=== PATIENT | female | born 1985 | race Caucasian/White ===

== ENCOUNTER 2024-07-18 15:48 | Inpatient (IN) ==
--- NOTE | 2024-07-18 17:21 | DR.GENAD ---
HPI Time Seen Time Seen by Provider: 07/18/24 17:20 PCP Primary Care Physician: WERO HPI Comment HPI Comment: 39-year-old obese female with hypertension came back for feeling weak and dehydrated. She was seen here a week ago for prolonged menstruation, anemia and was prescribed iron tablets. She was advised to follow-up with her [employer] doctor or PCP but she has not done that. She been trying to drink enough fluids but still she feels dehydrated feels like her sugar sputtering denied any vomiting or diarrhea Complaint/Symptoms Chief Complaint:: Patient states that she was recently here on the due to high blood pressure and passing blood clots. She also reports that her hemoglobin was low at this time. She states that she was sent home with iron pills. After taking them since discharge her fingers are now numb, and she feels like her sugar is bottoming out. She also reports that her feet are swollen. COVID-19 Coronavirus risk:travel/contact w/high risk person: No Has patient experienced Coronavirus symptoms: No Source History Provided: Patient Mode of Arrival Mode of Arrival: Ambulatory Timing Onset of Chief Complaint: 07/04/24 PMH PMH Past Medical History: Yes Past Medical History: Anxiety Past Surgical History: Yes Surgical History: Family History History of Family Medical Conditions: Yes Family Medical History: Diabetes Mellitus, Cancer and Hypertension Social History Does patient currently use any type of tobacco product: No Have you used tobacco products in the last 12 months: No Type of Tobacco Use: None Does any household member use tobacco: No Alcohol Use: None Do you use any recreational Drugs:: No Lives With: Family Lives Where: Home Travel Risk Coronavirus risk:travel/contact w/high risk person: No Has patient experienced Coronavirus symptoms: No Infectious screening In the last 2 months have you had wt loss of >10#?: NO Have you had fever, night sweats or hemotysis?: No Have you traveled outside the country in the last 6 months?: No Isolation: Standard ROS Review of Systems Constitutional: No Symptoms Reported, Malaise, Weakness and Fatigue; negative Diaphoresis or Fever Eyes: No Symptoms Reported and Blurred Vision; negative Tearing or Diplopia ENTM: No Symptoms Reported; negative Ear Discharge, Nose Discharge or Nose Congestion Respiratoy: No Symptoms Reported; negative Non-Productive Cough or Short of Breath Cardiovascular: No Symptoms Reported, Edema and Palpitations; negative Chest Pain or Syncope Gastrointestinal/Abdominal: No Symptoms Reported and Nausea; negative Constipation, Diarrhea or Vomiting Genitourinary: No Symptoms Reported; negative Dysuria, Frequency or Hematuria Neurological: No Symptoms Reported, Anxiety, Depressed and Emotional Problems Musculoskeletal: No Symptoms Reported; negative Back Pain, Joint Swelling, Muscle Pain or Muscle Stiffness Integumentary: No Symptoms Reported; negative Change in Hair/Nails, Dryness or Lesions Hematologic/Lymphatic: No Symptoms Reported and Blood Clots; negative Easy Bleeding or Easy Bruising Endocrine: No Symptoms Reported, Flushing, Increased Hunger and Increased Thirst Psychiatric: No Symptoms Reported All Other Systems: Reviewed and Negative PE Vital Signs Vitals: Vital Signs Temperature 99.5 F Pulse Rate 94 Respiratory Rate 18 Blood Pressure 158/70 O2 Sat by Pulse Oximetry 100 General Limitations: No Limitations General Appearance: Alert and In No Apparent Distress Head Head Exam: Normal Inspection, Atraumatic and Normocephalic Eyes Eye exam: Normal Appearance, PERRL and EOMI; negative Scleral Icterus or Conjunctival Injection ENT ENT Exam: Normal Exam and Mucous Membranes Dry External Ear Exam: Normal External Inspection; negative Mastoid Tenderness TM/Canal Exam: Bilateral: Normal Nose Exam: Normal Nose Exam Mouth Exam: Normal Inspection Throat Exam: Normal Inspection Neck Neck Exam: Normal Inspection and Full ROM; negative Tenderness or Meningismus Chest Chest Inspection: Normal Inspection and Symmetric Chest Wall Rise; negative Tenderness or Rash Respiratory Respiratory Exam: Normal Lung Sounds Bilat Respiratory Exam: Bilateral: Clear to Auscultation Cardiovascular Cardiovascular Exam: Regular Rate and Normal Rhythm Abdominal Exam Abdominal Exam: Normal Inspection, Normal Bowel Sounds and Soft; negative Distention, Tenderness or Guarding Extremities Extremities Exam: Normal Inspection Back Back Exam: Normal Inspection Neurologic Neurological Exam: Alert and Oriented X3 Psychiatric Psychiatric Exam: Normal Affect and Normal Mood Skin Skin Exam: Warm, Dry, Intact and Normal Color COURSE Treatment Treatment: Patient was given IV fluids and workup during this visit included CBC, CMP and a CAT scan of abdomen pelvis which showed no acute process going on just enlarged uterus. Noted to be severely anemic, will be admitted for Dr. Albarran for blood transfusions and further evaluation of anemia Reevaluation 1st: Consultation Called: 19:18 Call Returned: 19:20 Consultation Comments: Discussed with Dr. Albarran and agreed to admit this pa tient for blood transfusions and further evaluation of anemia. Education/Counseling Education/Counseling: Patient and Counseling ROR Labs Reviewed 07/18/24 17:37 07/18/24 17:37 Laboratory: WBC 6.3 X10^3/uL (3.6-10.0) 07/18/24 17:37 RBC 1.59 X10^6/uL (3.5-5.4) L 07/18/24 17:37 Hgb 4.1 g/dL (12.0-16.0) L* 07/18/24 17:37 Hct 12.4 % (36.0-47.0) L* 07/18/24 17:37 MCV 77.9 fL (80.0-100.0) L 07/18/24 17:37 MCH 25.5 pg (27.0-34.0) L 07/18/24 17:37 MCHC 32.7 g/dL (33.0-35.0) L 07/18/24 17:37 RDW 14.3 % (11.6-16.5) 07/18/24 17:37 Plt Count 487 X10^3/uL (150.0-450.0) H 07/18/24 17:37 MPV 6.9 fL (7.4-11.0) L 07/18/24 17:37 Neut % (Auto) 54.0 % (42.0-75.0) 07/18/24 17:37 Lymph % (Auto) 34.3 % (21.0-51.0) 07/18/24 17:37 [place] % (Auto) 11.1 % (0.0-13.0) 07/18/24 17:37 Eos % (Auto) 0.2 % (0.9-2.9) L 07/18/24 17:37 Baso % (Auto) 0.4 % (0.2-1.0) 07/18/24 17:37 Neut # (Auto) 3.4 x10^3/uL (2.2-4.8) 07/18/24 17:37 Lymph # (Auto) 2.2 X10^3/uL (1.3-2.9) 07/18/24 17:37 [place] # (Auto) 0.7 x10^3/uL (0.3-0.8) 07/18/24 17:37 Eos # (Auto) 0.0 x10^3/uL (0.0-0.2) 07/18/24 17:37 Baso # (Auto) 0.0 X10^3/uL (0.0-0.1) 07/18/24 17:37 Absolute Nucleated RBC 0.0 /100WBC 07/18/24 17:37 Sodium 134 mmol/L (136-145) L 07/18/24 17:37 Corrected Sodium TNP 07/18/24 17:37 Potassium 4.1 mmol/L (3.5-5.1) 07/18/24 17:37 Chloride 101 mmol/L (98-107) 07/18/24 17:37 Carbon Dioxide 30.1 mmol/L (21-32) 07/18/24 17:37 BUN 6 mg/dL (7-18) L 07/18/24 17:37 Creatinine 1.00 mg/dL (0.55-1.02) 07/18/24 17:37 Est GFR (MDRD) Af Amer > 60 (>60) 07/18/24 17:37 Est GFR (MDRD) Non-Af > 60 (>60) 07/18/24 17:37 Glucose 92 mg/dL (65-99) 07/18/24 17:37 Calcium 8.0 mg/dL (8.5-10.1) L 07/18/24 17:37 Corrected Calcium 9.0 mg/dL (8.5-10.1) 07/18/24 17:37 Total Bilirubin 0.20 mg/dL (0.2-1.0) 07/18/24 17:37 AST 9 Units/L (15-37) L 07/18/24 17:37 ALT 14 Units/L (12-78) 07/18/24 17:37 Alkaline Phosphatase 62 Units/L (46-116) 07/18/24 17:37 Troponin I High Sens 11.3 ng/L (4.0-60.0) 07/18/24 17:37 Total Protein 6.2 g/dL (6.4-8.2) L 07/18/24 17:37 Albumin 2.8 g/dL (3.4-5.0) L 07/18/24 17:37 Globulin 3.4 g/dL (2.5-4.5) 07/18/24 17:37 Albumin/Globulin Ratio 0.8 Ratio (1.1-2.1) L 07/18/24 17:37 Specimen Type Clean catch urine 07/18/24 17:50 Urine Color Straw (YELLOW) 07/18/24 17:50 Urine Appearance Clear (CLEAR) 07/18/24 17:50 Urine pH 6.5 (5.0 - 8.0) 07/18/24 17:50 Ur Specific [place] 1.010 (1.000-1.030) 07/18/24 17:50 Urine Protein Negative (NEGATIVE) 07/18/24 17:50 Urine Glucose (UA) Negative (NEGATIVE) 07/18/24 17:50 Urine Ketones Negative (NEGATIVE) 07/18/24 17:50 Urine Blood Negative (NEGATIVE) 07/18/24 17:50 Urine Nitrite Negative (NEGATIVE) 07/18/24 17:50 Urine Bilirubin Negative (NEGATIVE) 07/18/24 17:50 Urine Urobilinogen Normal (NORMAL) 07/18/24 17:50 Ur Leukocyte Esterase 1+ (NEGATIVE) 07/18/24 17:50 Urine RBC 3-5 /HPF (0-3) A 07/18/24 17:50 Urine WBC 20-30 /HPF (0-5) A 07/18/24 17:50 Ur Squamous Epith Cells Moderate /HPF (NEGATIVE) 07/18/24 17:50 Ur Transition Epith Cell Few /HPF (NEGATIVE) 07/18/24 17:50 Urine Bacteria Trace /HPF (NEGATIVE) 07/18/24 17:50 Ur Culture Indicated? No/not indicated 07/18/24 17:50 Stool Occult Blood Negative (NEGATIVE) 07/18/24 18:16 Urine Opiates Screen Negative (NEG=<300) 07/18/24 17:50 Urine Methadone Screen Negative (NEG=<300) 07/18/24 17:50 Ur Barbiturates Screen Negative (NEG=<200) 07/18/24 17:50 Ur Phencyclidine Scrn Negative (NEG=<25) 07/18/24 17:50 Ur Amphetamines Screen Negative (NEG=<1000) 07/18/24 17:50 U Benzodiazepines Scrn Negative (NEG=<200) 07/18/24 17:50 Urine Cocaine Screen Negative (NEG=<300) 07/18/24 17:50 U Marijuana (THC) Screen Negative (NEG=<50) 07/18/24 17:50 Blood Type O POSITIVE 07/18/24 18:38 Blood Type O POSITIVE 07/18/24 18:38 Antibody Screen Negative 07/18/24 18:38 Crossmatch See Detail 07/18/24 18:38 Opioid Opioid Risk Tool Age (Aidan box if 16-45): Yes History of Preadolescent Sexual Abuse: No Total: 1 Total Score Risk Category: Low Risk Copyright: Raj JARAMILLO predicting aberrant behaviors Discharge Plan Diagnosis Discharge Problem: Anemia Qualifiers: Anemia type: unspecified type Qualified Code(s): D64.9 - Anemia, unspecified Discharge Plan Patient Disposition: ADMITTED INPATIENT Condition: Stable Prescriptions: No Action ferrous sulfate 325 mg (65 mg iron) tablet 325 mg PO QDAY Qty: 20 0RF Health Concerns: Post Hospitalization: new medications and changes needed to prevent readmission or further decline. Pt educated and given instructions on all concerns. Plan of Treatment: Continue with present treatment and follow up plan. Pt is to keep follow up appointment as instructed and take medications as ordered. Orders to Discharge Patient Discharge Orders: Transfer (Routine); Ordered 07/18/24 Ordered By: Davis Gaitan Follow ups/Referrals Follow ups/Referrals: NFD,None [Primary Care Provider] - 3 days
[2024-07-18] MEDS: NS 1,000 ML IV 1,000 ML IV ONE (17:39)
[2024-07-18 17:47] LABS: EOSINOPHILS % (AUTO) 0.2 % (0.9-2.9); MONOCYTES # (AUTO) 0.7 x10^3/uL (0.3-0.8); NEUTROPHILS # (AUTO) 3.4 x10^3/uL (2.2-4.8); RED BLOOD COUNT 1.59 X10^6/uL (3.5-5.4)
[2024-07-18 17:58] LABS: BASOPHILS % (AUTO) 0.4 % (0.2-1.0); LYMPHOCYTES # (AUTO) 2.2 X10^3/uL (1.3-2.9); LYMPHOCYTES % (AUTO) 34.3 % (21.0-51.0); MEAN CORPUSCULAR HEMOGLOBIN 25.5 pg (27.0-34.0); MEAN CORPUSCULAR HGB CONC 32.7 g/dL (33.0-35.0); MEAN CORPUSCULAR VOLUME 77.9 fL (80.0-100.0); MEAN PLATELET VOLUME 6.9 fL (7.4-11.0); MONOCYTES % (AUTO) 11.1 % (0.0-13.0); PLATELET COUNT 487 X10^3/uL (150.0-450.0); RED CELL DISTRIBUTION WIDTH 14.3 % (11.6-16.5); WHITE BLOOD COUNT 6.3 X10^3/uL (3.6-10.0)
--- NOTE | 2024-07-18 17:58 | EKG ---
Test Reason : weakness Blood Pressure : */* mmHG Vent. Rate : 97 BPM Atrial Rate : 97 BPM P-R Int : 126 ms QRS Dur : 74 ms QT Int : 356 ms P-R-T Axes : 72 61 68 degrees QTc Int : 452 ms Normal sinus rhythm Normal ECG No previous ECGs available Confirmed by Tesfaye Gaspar MD ([id number]) on 07/19/2024 7:41:42 AM Referred By: Confirmed By: Tesfaye Gaspar MD
[2024-07-18 18:00] LABS: ALANINE AMINOTRANSFERASE 14 Units/L (12-78); ALBUMIN 2.8 g/dL (3.4-5.0); ALKALINE PHOSPHATASE 62 Units/L (46-116); ASPARTATE AMINO TRANSFERASE 9 Units/L (15-37); BLOOD UREA NITROGEN 6 mg/dL (7-18); CARBON DIOXIDE 30.1 mmol/L (21-32); CHLORIDE 101 mmol/L (98-107); GLUCOSE 92 mg/dL (65-99); POTASSIUM 4.1 mmol/L (3.5-5.1); SODIUM 134 mmol/L (136-145); TOTAL PROTEIN 6.2 g/dL (6.4-8.2); eGFR NON BLACK RACES > 60 (>60)
[2024-07-18 18:01] LABS: HEMATOCRIT 12.4 % (36.0-47.0); HEMOGLOBIN 4.1 g/dL (12.0-16.0)
[2024-07-18 18:03] LABS: BILIRUBIN,URINE NEGATIVE (NEGATIVE); BLOOD/HEMOGLOBIN,URINE NEGATIVE (NEGATIVE); GLUCOSE, URINE NEGATIVE (NEGATIVE); KETONES,URINE NEGATIVE (NEGATIVE); LEUKOCYTE ESTERASE ,URINE 1+ (NEGATIVE); NITRITES,URINE NEGATIVE (NEGATIVE); PH,URINE 6.5 (5.0 - 8.0); PROTEIN,URINE NEGATIVE (NEGATIVE); UROBILINOGEN,URINE NORMAL (NORMAL)
[2024-07-18 18:10] LABS: APPEARANCE,URINE CLEAR (CLEAR); COLOR,URINE STRAW (YELLOW)
[2024-07-18 18:18] LABS: BACTERIA,URINE TRACE /HPF (NEGATIVE); SQUAMOUS EPITHELIAL CELL,UR MODERATE /HPF (NEGATIVE); TRANSITIONAL EPI CELLS,URINE FEW /HPF (NEGATIVE)
--- NOTE | 2024-07-18 19:02 | CT ---
EXAM:CT ABDOMEN AND PELVIS WITHOUT CONTRASTHISTORY:DYSURIA, UTI, ;COMPARISON:NoneTECHNIQUE:Axial images were obtained of the abdomen and pelvis without IV contrast. Sagittal and coronal reformatted images were provided. All images were reviewed in a variety of windows and levels.RADIATION REDUCTION TECHNIQUE: Automated exposure control, adjustment of the mA or kV according to patient size, or iterative reconstruction techniques were used.FINDINGS:Please note that lack of IV contrast does limit evaluation of the soft tissues and vascular detail.The visualized lower lung zones are clear. The heart size is within normal limits. There is no evidence of a pericardial effusion.The liver, spleen, pancreas, adrenal glands, and kidneys are grossly unremarkable. The gallbladder is grossly unremarkable.There is no evidence of stones or signs of obstructive uropathy.The stomach, small bowel, and colon are grossly unremarkable. There are no inflammatory changes in the right lower quadrant to suggest secondary signs of acute appendicitis. Normal appendix right lower quadrant.There is no evidence of retroperitoneal or mesenteric lymphadenopathy. Uterus is present.The visualized bones are intact. There are no concerning lytic or blastic lesions identified.IMPRESSION:No acute abdominal or pelvic pathologyTHIS IS AN ELECTRONICALLY VERIFIED FINAL [id number] 6:59 PM - Electronically signed by Angel Orellana MD
--- NOTE | 2024-07-18 19:34 | DR.GENAD ---
HPI Time Seen Time Seen by Provider: 07/18/24 17:20 PCP Primary Care Physician: WERO Complaint/Symptoms Chief Complaint:: Patient states that she was recently here on the due to high blood pressure and passing blood clots. She also reports that her hemoglobin was low at this time. She states that she was sent home with iron pills. After taking them since discharge her fingers are now numb, and she feels like her sugar is bottoming out. She also reports that her feet are swollen. COVID-19 Coronavirus risk:travel/contact w/high risk person: No Has patient experienced Coronavirus symptoms: No Source History Provided: Patient Mode of Arrival Mode of Arrival: Ambulatory Timing Onset of Chief Complaint: 07/04/24 PMH PMH Past Medical History: Yes Past Medical History: Anxiety Past Surgical History: Yes Surgical History: Family History History of Family Medical Conditions: Yes Family Medical History: Diabetes Mellitus, Cancer and Hypertension Social History Does patient currently use any type of tobacco product: No Have you used tobacco products in the last 12 months: No Type of Tobacco Use: None Does any household member use tobacco: No Alcohol Use: None Do you use any recreational Drugs:: No Lives With: Family Lives Where: Home Travel Risk Coronavirus risk:travel/contact w/high risk person: No Has patient experienced Coronavirus symptoms: No Infectious screening In the last 2 months have you had wt loss of >10#?: NO Have you had fever, night sweats or hemotysis?: No Have you traveled outside the country in the last 6 months?: No Isolation: Standard PE Vital Signs Vitals: Vital Signs Temperature 99.5 F Pulse Rate 94 Respiratory Rate 18 Blood Pressure 158/70 O2 Sat by Pulse Oximetry 100 ROR Labs Reviewed Laboratory Results Reviewed?: Yes 07/18/24 17:37 07/18/24 17:37 Laboratory: WBC 6.3 X10^3/uL (3.6-10.0) 07/18/24 17:37 RBC 1.59 X10^6/uL (3.5-5.4) L 07/18/24 17:37 Hgb 4.1 g/dL (12.0-16.0) L* 07/18/24 17:37 Hct 12.4 % (36.0-47.0) L* 07/18/24 17:37 MCV 77.9 fL (80.0-100.0) L 07/18/24 17:37 MCH 25.5 pg (27.0-34.0) L 07/18/24 17:37 MCHC 32.7 g/dL (33.0-35.0) L 07/18/24 17:37 RDW 14.3 % (11.6-16.5) 07/18/24 17:37 Plt Count 487 X10^3/uL (150.0-450.0) H 07/18/24 17:37 MPV 6.9 fL (7.4-11.0) L 07/18/24 17:37 Neut % (Auto) 54.0 % (42.0-75.0) 07/18/24 17:37 Lymph % (Auto) 34.3 % (21.0-51.0) 07/18/24 17:37 [place] % (Auto) 11.1 % (0.0-13.0) 07/18/24 17:37 Eos % (Auto) 0.2 % (0.9-2.9) L 07/18/24 17:37 Baso % (Auto) 0.4 % (0.2-1.0) 07/18/24 17:37 Neut # (Auto) 3.4 x10^3/uL (2.2-4.8) 07/18/24 17:37 Lymph # (Auto) 2.2 X10^3/uL (1.3-2.9) 07/18/24 17:37 [place] # (Auto) 0.7 x10^3/uL (0.3-0.8) 07/18/24 17:37 Eos # (Auto) 0.0 x10^3/uL (0.0-0.2) 07/18/24 17:37 Baso # (Auto) 0.0 X10^3/uL (0.0-0.1) 07/18/24 17:37 Absolute Nucleated RBC 0.0 /100WBC 07/18/24 17:37 Sodium 134 mmol/L (136-145) L 07/18/24 17:37 Corrected Sodium TNP 07/18/24 17:37 Potassium 4.1 mmol/L (3.5-5.1) 07/18/24 17:37 Chloride 101 mmol/L (98-107) 07/18/24 17:37 Carbon Dioxide 30.1 mmol/L (21-32) 07/18/24 17:37 BUN 6 mg/dL (7-18) L 07/18/24 17:37 Creatinine 1.00 mg/dL (0.55-1.02) 07/18/24 17:37 Est GFR (MDRD) Af Amer > 60 (>60) 07/18/24 17:37 Est GFR (MDRD) Non-Af > 60 (>60) 07/18/24 17:37 Glucose 92 mg/dL (65-99) 07/18/24 17:37 Calcium 8.0 mg/dL (8.5-10.1) L 07/18/24 17:37 Corrected Calcium 9.0 mg/dL (8.5-10.1) 07/18/24 17:37 Total Bilirubin 0.20 mg/dL (0.2-1.0) 07/18/24 17:37 AST 9 Units/L (15-37) L 07/18/24 17:37 ALT 14 Units/L (12-78) 07/18/24 17:37 Alkaline Phosphatase 62 Units/L (46-116) 07/18/24 17:37 Troponin I High Sens 11.3 ng/L (4.0-60.0) 07/18/24 17:37 Total Protein 6.2 g/dL (6.4-8.2) L 07/18/24 17:37 Albumin 2.8 g/dL (3.4-5.0) L 07/18/24 17:37 Globulin 3.4 g/dL (2.5-4.5) 07/18/24 17:37 Albumin/Globulin Ratio 0.8 Ratio (1.1-2.1) L 07/18/24 17:37 Specimen Type Clean catch urine 07/18/24 17:50 Urine Color Straw (YELLOW) 07/18/24 17:50 Urine Appearance Clear (CLEAR) 07/18/24 17:50 Urine pH 6.5 (5.0 - 8.0) 07/18/24 17:50 Ur Specific [place] 1.010 (1.000-1.030) 07/18/24 17:50 Urine Protein Negative (NEGATIVE) 07/18/24 17:50 Urine Glucose (UA) Negative (NEGATIVE) 07/18/24 17:50 Urine Ketones Negative (NEGATIVE) 07/18/24 17:50 Urine Blood Negative (NEGATIVE) 07/18/24 17:50 Urine Nitrite Negative (NEGATIVE) 07/18/24 17:50 Urine Bilirubin Negative (NEGATIVE) 07/18/24 17:50 Urine Urobilinogen Normal (NORMAL) 07/18/24 17:50 Ur Leukocyte Esterase 1+ (NEGATIVE) 07/18/24 17:50 Urine RBC 3-5 /HPF (0-3) A 07/18/24 17:50 Urine WBC 20-30 /HPF (0-5) A 07/18/24 17:50 Ur Squamous Epith Cells Moderate /HPF (NEGATIVE) 07/18/24 17:50 Ur Transition Epith Cell Few /HPF (NEGATIVE) 07/18/24 17:50 Urine Bacteria Trace /HPF (NEGATIVE) 07/18/24 17:50 Ur Culture Indicated? No/not indicated 07/18/24 17:50 Stool Occult Blood Negative (NEGATIVE) 07/18/24 18:16 Urine Opiates Screen Negative (NEG=<300) 07/18/24 17:50 Urine Methadone Screen Negative (NEG=<300) 07/18/24 17:50 Ur Barbiturates Screen Negative (NEG=<200) 07/18/24 17:50 Ur Phencyclidine Scrn Negative (NEG=<25) 07/18/24 17:50 Ur Amphetamines Screen Negative (NEG=<1000) 07/18/24 17:50 U Benzodiazepines Scrn Negative (NEG=<200) 07/18/24 17:50 Urine Cocaine Screen Negative (NEG=<300) 07/18/24 17:50 U Marijuana (THC) Screen Negative (NEG=<50) 07/18/24 17:50 Blood Type O POSITIVE 07/18/24 18:38 Blood Type O POSITIVE 07/18/24 18:38 Antibody Screen Negative 07/18/24 18:38 Crossmatch See Detail 07/18/24 18:38 EKG Rate: 97 [place]: Normal Rhythm: NSR Opioid Opioid Risk Tool Age (Aidan box if 16-45): Yes History of Preadolescent Sexual Abuse: No Total: 1 Total Score Risk Category: Low Risk Copyright: Raj JARAMILLO predicting aberrant behaviors Discharge Plan Diagnosis Discharge Problem: Anemia Qualifiers: Anemia type: unspecified type Qualified Code(s): D64.9 - Anemia, unspecified Discharge Plan Patient Disposition: ADMITTED INPATIENT Condition: Stable Prescriptions: No Action ferrous sulfate 325 mg (65 mg iron) tablet 325 mg PO QDAY Qty: 20 0RF Health Concerns: Post Hospitalization: new medications and changes needed to prevent readmission or further decline. Pt educated and given instructions on all concerns. Plan of Treatment: Continue with present treatment and follow up plan. Pt is to keep follow up appointment as instructed and take medications as ordered. Orders to Discharge Patient Discharge Orders: Transfer (Routine); Ordered 07/18/24 Ordered By: Davis Gaitan Follow ups/Referrals Follow ups/Referrals: NFD,None [Primary Care Provider] - 3 days ADDITIONAL NOTES Additional Notes Additional Notes: Patient will be admitted for OBS, for Dr. Albarran
[2024-07-18] MEDS ORDERED: CONSULT PHARMACY - POTASSIUM & MAGNESIUM XX SCH (20:00)
[2024-07-18 20:54] VITALS: BMI 32.9
[2024-07-18] MEDS: TYLENOL 325 MG TAB PO PRN (21:22)
[2024-07-19 07:54] LABS: MEAN CORPUSCULAR VOLUME 81.3 fL (80.0-100.0); MEAN PLATELET VOLUME 6.9 fL (7.4-11.0); NEUTROPHILS # (AUTO) 2.9 x10^3/uL (2.2-4.8)
[2024-07-19 07:57] LABS: BASOPHILS % (AUTO) 0.4 % (0.2-1.0); EOSINOPHILS % (AUTO) 0.8 % (0.9-2.9); LYMPHOCYTES # (AUTO) 1.6 X10^3/uL (1.3-2.9); LYMPHOCYTES % (AUTO) 30.9 % (21.0-51.0); MEAN CORPUSCULAR HEMOGLOBIN 26.7 pg (27.0-34.0); MEAN CORPUSCULAR HGB CONC 32.9 g/dL (33.0-35.0); MONOCYTES # (AUTO) 0.7 x10^3/uL (0.3-0.8); MONOCYTES % (AUTO) 12.6 % (0.0-13.0); NEUTROPHILS % (AUTO) 55.3 % (42.0-75.0); PLATELET COUNT 443 X10^3/uL (150.0-450.0); RED BLOOD COUNT 2.31 X10^6/uL (3.5-5.4); RED CELL DISTRIBUTION WIDTH 15.3 % (11.6-16.5); WHITE BLOOD COUNT 5.3 X10^3/uL (3.6-10.0)
[2024-07-19 07:59] LABS: HEMATOCRIT 18.8 % (36.0-47.0); HEMOGLOBIN 6.2 g/dL (12.0-16.0)
[2024-07-19 08:07] LABS: ALANINE AMINOTRANSFERASE 14 Units/L (12-78); ALBUMIN 2.6 g/dL (3.4-5.0); ALKALINE PHOSPHATASE 57 Units/L (46-116); ASPARTATE AMINO TRANSFERASE 9 Units/L (15-37); BLOOD UREA NITROGEN 8 mg/dL (7-18); CALCIUM 7.9 mg/dL (8.5-10.1); CARBON DIOXIDE 27.4 mmol/L (21-32); CHLORIDE 104 mmol/L (98-107); CREATININE 0.89 mg/dL (0.55-1.02); GLUCOSE 90 mg/dL (65-99); POTASSIUM 4.1 mmol/L (3.5-5.1); SODIUM 137 mmol/L (136-145); TOTAL PROTEIN 5.8 g/dL (6.4-8.2); eGFR NON BLACK RACES > 60 (>60)
[2024-07-19] MEDS: PROVERA PO SCH (09:10)
--- NOTE | 2024-07-19 09:54 | US ---
EXAM: PELVIC (NON OB) HISTORY: VAGINAL BLEEDING, SEVERE ANEMIA; last menstrual cycle 07/11/2024. A3. COMPARISON: CT abdomen and pelvis 07/18/2024 TECHNIQUE: 35 images made by the message and delivery service pricer. Morejon scale and color flow images of the pelvis were obtained. FINDINGS: Transabdominal: Bladder is not well distended. It has a thin wall, but this makes for a poor acousti c window. Uterus is anteverted in position. The distal body and fundus may be slightly retroflexed. It measur es about 10 cm long and about 4 cm in diameter. There is suboptimal visualization of the lower uterine segment. But in general, the uterus has a smo oth contour. The myometrium has uniform coarse echotexture without mass or nodule to suggest fibroid . Endometrium is isoechoic measuring 6 mm. Right and left ovary have normal volume and echogenicity. Blood flow is demonstrated by color imagin g and spectral wave form analysis. There is a cystic structure in the left ovary measuring 2.9 cm. This may be a dominant follicle. There is no adnexal mass or free fluid. IMPRESSION: 1. No significant abnormality THIS IS AN ELECTRONICALLY VERIFIED FINAL REPORT 07/19/2024 9:51 AM - Electronically signed by Eric Davies MD
--- NOTE | 2024-07-19 14:14 | DR.H&P ---
H&P History & Physical for Day of: H&P Date: 07/19/24 Chief Complaint Chief Complaint: fatigue History of Present Illness History of Present Illness: Patient presented to the ER with complaints of worsening dizziness and continued uterine bleeding with clots. 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 Can back last night with no im provement. Hemoglobin found to be less than 5. She was transfused 2 units overnight with appropriate improvement in hemoglobin. Currently getting third unit as her hemoglobin was still less than 7. She continues to report fatigue that is improving, uterine bleeding, and sleepiness. Gynecology has evaluated the patient and recommended progesterone. She has had a TVUS showing no fibroids with a possible cyst. CT A/P with no concerning findings last night. ROS: 2 point ROS negative except as noted in HPI Vitals, labs, imaging reviewed PE: Well-developed, well-nourished, obese female in NAD. Appears tired. Hearing intact conversation. Head NCAT. Neck full range of motion with midline trachea. Heart regular rate and rhythm. Lungs are clear bilaterally with good speech. Pastimes present and belly is soft and nontender. Mood affect are appropriate. Past Medical History Past Medical History: Anxiety Past Surgical History Surgical History: Family History Family Medical History: Diabetes Mellitus, Cancer, [place], Heart Failure and Hypertension Social History Does patient currently use any type of tobacco product: No Have you used tobacco products in the last 12 months: No Type of Tobacco Use: None Does any household member use tobacco: No Alcohol Use: None Drug Use: None Allergies Allergies Allergy/AdvReac Type Severity Reaction Status Date / Time No Known Allergies Allergy Verified 07/11/24 16:46 Labs 07/19/24 07:45 07/19/24 07:45 Labs: Laboratory WBC 5.3 X10^3/uL (3.6-10.0) 07/19/24 07:45 RBC 2.31 X10^6/uL (3.5-5.4) L 07/19/24 07:45 Hgb 6.2 g/dL (12.0-16.0) L* D 07/19/24 07:45 Hct 18.8 % (36.0-47.0) L* 07/19/24 07:45 MCV 81.3 fL (80.0-100.0) 07/19/24 07:45 MCH 26.7 pg (27.0-34.0) L 07/19/24 07:45 MCHC 32.9 g/dL (33.0-35.0) L 07/19/24 07:45 RDW 15.3 % (11.6-16.5) 07/19/24 07:45 Plt Count 443 X10^3/uL (150.0-450.0) 07/19/24 07:45 MPV 6.9 fL (7.4-11.0) L 07/19/24 07:45 Neut % (Auto) 55.3 % (42.0-75.0) 07/19/24 07:45 Lymph % (Auto) 30.9 % (21.0-51.0) 07/19/24 07:45 [place] % (Auto) 12.6 % (0.0-13.0) 07/19/24 07:45 Eos % (Auto) 0.8 % (0.9-2.9) L 07/19/24 07:45 Baso % (Auto) 0.4 % (0.2-1.0) 07/19/24 07:45 Neut # (Auto) 2.9 x10^3/uL (2.2-4.8) 07/19/24 07:45 Lymph # (Auto) 1.6 X10^3/uL (1.3-2.9) 07/19/24 07:45 [place] # (Auto) 0.7 x10^3/uL (0.3-0.8) 07/19/24 07:45 Eos # (Auto) 0.0 x10^3/uL (0.0-0.2) 07/19/24 07:45 Baso # (Auto) 0.0 X10^3/uL (0.0-0.1) 07/19/24 07:45 Absolute Nucleated RBC 0.1 /100WBC 07/19/24 07:45 Sodium 137 mmol/L (136-145) 07/19/24 07:45 Corrected Sodium TNP 07/19/24 07:45 Potassium 4.1 mmol/L (3.5-5.1) 07/19/24 07:45 Chloride 104 mmol/L (98-107) 07/19/24 07:45 Carbon Dioxide 27.4 mmol/L (21-32) 07/19/24 07:45 BUN 8 mg/dL (7-18) 07/19/24 07:45 Creatinine 0.89 mg/dL (0.55-1.02) 07/19/24 07:45 Est GFR (MDRD) Af Amer > 60 (>60) 07/19/24 07:45 Est GFR (MDRD) Non-Af > 60 (>60) 07/19/24 07:45 Glucose 90 mg/dL (65-99) 07/19/24 07:45 Calcium 7.9 mg/dL (8.5-10.1) L 07/19/24 07:45 Corrected Calcium 9.0 mg/dL (8.5-10.1) 07/19/24 07:45 Total Bilirubin 0.50 mg/dL (0.2-1.0) 07/19/24 07:45 AST 9 Units/L (15-37) L 07/19/24 07:45 ALT 14 Units/L (12-78) 07/19/24 07:45 Alkaline Phosphatase 57 Units/L (46-116) 07/19/24 07:45 Troponin I High Sens 11.3 ng/L (4.0-60.0) 07/18/24 17:37 Total Protein 5.8 g/dL (6.4-8.2) L 07/19/24 07:45 Albumin 2.6 g/dL (3.4-5.0) L 07/19/24 07:45 Globulin 3.2 g/dL (2.5-4.5) 07/19/24 07:45 Albumin/Globulin Ratio 0.8 Ratio (1.1-2.1) L 07/19/24 07:45 Specimen Type Clean catch urine 07/18/24 17:50 Urine Color Straw (YELLOW) 07/18/24 17:50 Urine Appearance Clear (CLEAR) 07/18/24 17:50 Urine pH 6.5 (5.0 - 8.0) 07/18/24 17:50 Ur Specific [place] 1.010 (1.000-1.030) 07/18/24 17:50 Urine Protein Negative (NEGATIVE) 07/18/24 17:50 Urine Glucose (UA) Negative (NEGATIVE) 07/18/24 17:50 Urine Ketones Negative (NEGATIVE) 07/18/24 17:50 Urine Blood Negative (NEGATIVE) 07/18/24 17:50 Urine Nitrite Negative (NEGATIVE) 07/18/24 17:50 Urine Bilirubin Negative (NEGATIVE) 07/18/24 17:50 Urine Urobilinogen Normal (NORMAL) 07/18/24 17:50 Ur Leukocyte Esterase 1+ (NEGATIVE) 07/18/24 17:50 Urine RBC 3-5 /HPF (0-3) A 07/18/24 17:50 Urine WBC 20-30 /HPF (0-5) A 07/18/24 17:50 Ur Squamous Epith Cells Moderate /HPF (NEGATIVE) 07/18/24 17:50 Ur Transition Epith Cell Few /HPF (NEGATIVE) 07/18/24 17:50 Urine Bacteria Trace /HPF (NEGATIVE) 07/18/24 17:50 Ur Culture Indicated? No/not indicated 07/18/24 17:50 Stool Occult Blood Negative (NEGATIVE) 07/18/24 18:16 Urine Opiates Screen Negative (NEG=<300) 07/18/24 17:50 Urine Methadone Screen Negative (NEG=<300) 07/18/24 17:50 Ur Barbiturates Screen Negative (NEG=<200) 07/18/24 17:50 Ur Phencyclidine Scrn Negative (NEG=<25) 07/18/24 17:50 Ur Amphetamines Screen Negative (NEG=<1000) 07/18/24 17:50 U Benzodiazepines Scrn Negative (NEG=<200) 07/18/24 17:50 Urine Cocaine Screen Negative (NEG=<300) 07/18/24 17:50 U Marijuana (THC) Screen Negative (NEG=<50) 07/18/24 17:50 Blood Type O POSITIVE 07/18/24 18:38 Antibody Screen Negative 07/18/24 17:38 Crossmatch See Detail 07/18/24 17:38 Physical Exam Vital Signs: Vital Signs Temperature 98.6 F Temperature 97.9 F Pulse Rate [Brachial] 92 Pulse Rate [Brachial] 84 Respiratory Rate 20 Respiratory Rate 20 Blood Pressure [Left Arm] 164/79 Blood Pressure [Left Arm] 142/69 O2 Sat by Pulse Oximetry 100 O2 Sat by Pulse Oximetry 99 Assessment/Plan (1) Iron deficiency anemia due to chronic blood loss: Narrative Support Text: Complete 3rd/4th PRBC units. Recheck labs in AM. Status: Acute (2) Menorrhagia: Qualifiers: Menorrhagia type: with onset of menstrual periods Qualified Code(s): N92.2 - Excessive menstruation at puberty Narrative Support Text: appreciate input from TRACK LINER OPERATOR. Follow recs. Status: Acute
[2024-07-19] MEDS: FERROUS GLUCONATE PO SCH (16:02)
[2024-07-19 18:42] LABS: HEMATOCRIT 26.3 % (36.0-47.0); HEMOGLOBIN 8.9 g/dL (12.0-16.0)
[2024-07-19] MEDS: NS 500 ML IV 500 ML IV ONE (23:19)
[2024-07-19] MEDS: NS 250 ML IV 250 ML IV ONE ×4 (23:19→23:20)
[2024-07-20 04:46] LABS: BASOPHILS % (AUTO) 0.6 % (0.2-1.0); EOSINOPHILS # (AUTO) 0.1 x10^3/uL (0.0-0.2); EOSINOPHILS % (AUTO) 1.3 % (0.9-2.9); HEMATOCRIT 24.4 % (36.0-47.0); HEMOGLOBIN 8.2 g/dL (12.0-16.0); LYMPHOCYTES # (AUTO) 2.2 X10^3/uL (1.3-2.9); LYMPHOCYTES % (AUTO) 36.9 % (21.0-51.0); MEAN CORPUSCULAR HEMOGLOBIN 27.2 pg (27.0-34.0); MEAN CORPUSCULAR HGB CONC 33.7 g/dL (33.0-35.0); MEAN CORPUSCULAR VOLUME 80.7 fL (80.0-100.0); MEAN PLATELET VOLUME 7.3 fL (7.4-11.0); MONOCYTES # (AUTO) 0.6 x10^3/uL (0.3-0.8); MONOCYTES % (AUTO) 10.3 % (0.0-13.0); NEUTROPHILS # (AUTO) 3.1 x10^3/uL (2.2-4.8); NEUTROPHILS % (AUTO) 50.9 % (42.0-75.0); PLATELET COUNT 442 X10^3/uL (150.0-450.0); RED BLOOD COUNT 3.03 X10^6/uL (3.5-5.4); RED CELL DISTRIBUTION WIDTH 15.7 % (11.6-16.5)
[2024-07-20 05:02] LABS: ALANINE AMINOTRANSFERASE 12 Units/L (12-78); ALBUMIN 2.7 g/dL (3.4-5.0); ALKALINE PHOSPHATASE 61 Units/L (46-116); ASPARTATE AMINO TRANSFERASE 7 Units/L (15-37); BLOOD UREA NITROGEN 13 mg/dL (7-18); CALCIUM 8.2 mg/dL (8.5-10.1); CARBON DIOXIDE 26.1 mmol/L (21-32); CHLORIDE 105 mmol/L (98-107); COR CA(FOR HYPOALB) 9.2 mg/dL (8.5-10.1); CREATININE 0.89 mg/dL (0.55-1.02); GLUCOSE 94 mg/dL (65-99); POTASSIUM 3.7 mmol/L (3.5-5.1); SODIUM 138 mmol/L (136-145); eGFR NON BLACK RACES > 60 (>60)
[2024-07-20] MEDS ORDERED: CONSULT PHARMACY - POTASSIUM & MAGNESIUM XX SCH (07:00)
[2024-07-20] MEDS: K-DUR TAB 20 MEQ PO SCH (08:03)
--- NOTE | 2024-07-20 08:06 | PCM.DCPLAN ---
DISCHARGE SUMMARY Admission Date Date of Admission: 07/18/24 Discharge Date Discharge Date: 07/20/24 Admission Diagnoses (1) Iron deficiency anemia due to chronic blood loss: Status: Acute (2) Menorrhagia: Status: Acute Discharge Medications Discharge Medications: Prescriptions: Hospital Course Vital Signs: Vital Signs Temperature 97.6 F Pulse Rate [Brachial] 64 Respiratory Rate 21 Blood Pressure [Left Arm] 169/76 Blood Pressure [Left Arm] 158/76 O2 Sat by Pulse Oximetry 100 Latest Lab Results: Laboratory Last Values WBC 6.0 X10^3/uL (3.6-10.0) 07/20/24 04:06 RBC 3.03 X10^6/uL (3.5-5.4) L 07/20/24 04:06 Hgb 8.2 g/dL (12.0-16.0) L 07/20/24 04:06 Hct 24.4 % (36.0-47.0) L 07/20/24 04:06 MCV 80.7 fL (80.0-100.0) 07/20/24 04:06 MCH 27.2 pg (27.0-34.0) 07/20/24 04:06 MCHC 33.7 g/dL (33.0-35.0) 07/20/24 04:06 RDW 15.7 % (11.6-16.5) 07/20/24 04:06 Plt Count 442 X10^3/uL (150.0-450.0) 07/20/24 04:06 MPV 7.3 fL (7.4-11.0) L 07/20/24 04:06 Neut % (Auto) 50.9 % (42.0-75.0) 07/20/24 04:06 Lymph % (Auto) 36.9 % (21.0-51.0) 07/20/24 04:06 [place] % (Auto) 10.3 % (0.0-13.0) 07/20/24 04:06 Eos % (Auto) 1.3 % (0.9-2.9) 07/20/24 04:06 Baso % (Auto) 0.6 % (0.2-1.0) 07/20/24 04:06 Neut # (Auto) 3.1 x10^3/uL (2.2-4.8) 07/20/24 04:06 Lymph # (Auto) 2.2 X10^3/uL (1.3-2.9) 07/20/24 04:06 [place] # (Auto) 0.6 x10^3/uL (0.3-0.8) 07/20/24 04:06 Eos # (Auto) 0.1 x10^3/uL (0.0-0.2) 07/20/24 04:06 Baso # (Auto) 0.0 X10^3/uL (0.0-0.1) 07/20/24 04:06 Absolute Nucleated RBC 0.3 /100WBC 07/20/24 04:06 Sodium 138 mmol/L (136-145) 07/20/24 04:06 Corrected Sodium TNP 07/20/24 04:06 Potassium 3.7 mmol/L (3.5-5.1) 07/20/24 04:06 Chloride 105 mmol/L (98-107) 07/20/24 04:06 Carbon Dioxide 26.1 mmol/L (21-32) 07/20/24 04:06 BUN 13 mg/dL (7-18) 07/20/24 04:06 Creatinine 0.89 mg/dL (0.55-1.02) 07/20/24 04:06 Est GFR (MDRD) Af Amer > 60 (>60) 07/20/24 04:06 Est GFR (MDRD) Non-Af > 60 (>60) 07/20/24 04:06 Glucose 94 mg/dL (65-99) 07/20/24 04:06 Calcium 8.2 mg/dL (8.5-10.1) L 07/20/24 04:06 Corrected Calcium 9.2 mg/dL (8.5-10.1) 07/20/24 04:06 Magnesium 2.0 mg/dL (2.0-2.9) 07/20/24 04:06 Total Bilirubin 0.40 mg/dL (0.2-1.0) 07/20/24 04:06 AST 7 Units/L (15-37) L 07/20/24 04:06 ALT 12 Units/L (12-78) 07/20/24 04:06 Alkaline Phosphatase 61 Units/L (46-116) 07/20/24 04:06 Troponin I High Sens 11.3 ng/L (4.0-60.0) 07/18/24 17:37 Total Protein 6.0 g/dL (6.4-8.2) L 07/20/24 04:06 Albumin 2.7 g/dL (3.4-5.0) L 07/20/24 04:06 Globulin 3.3 g/dL (2.5-4.5) 07/20/24 04:06 Albumin/Globulin Ratio 0.8 Ratio (1.1-2.1) L 07/20/24 04:06 Specimen Type Clean catch urine 07/18/24 17:50 Urine Color Straw (YELLOW) 07/18/24 17:50 Urine Appearance Clear (CLEAR) 07/18/24 17:50 Urine pH 6.5 (5.0 - 8.0) 07/18/24 17:50 Ur Specific [place] 1.010 (1.000-1.030) 07/18/24 17:50 Urine Protein Negative (NEGATIVE) 07/18/24 17:50 Urine Glucose (UA) Negative (NEGATIVE) 07/18/24 17:50 Urine Ketones Negative (NEGATIVE) 07/18/24 17:50 Urine Blood Negative (NEGATIVE) 07/18/24 17:50 Urine Nitrite Negative (NEGATIVE) 07/18/24 17:50 Urine Bilirubin Negative (NEGATIVE) 07/18/24 17:50 Urine Urobilinogen Normal (NORMAL) 07/18/24 17:50 Ur Leukocyte Esterase 1+ (NEGATIVE) 07/18/24 17:50 Urine RBC 3-5 /HPF (0-3) A 07/18/24 17:50 Urine WBC 20-30 /HPF (0-5) A 07/18/24 17:50 Ur Squamous Epith Cells Moderate /HPF (NEGATIVE) 07/18/24 17:50 Ur Transition Epith Cell Few /HPF (NEGATIVE) 07/18/24 17:50 Urine Bacteria Trace /HPF (NEGATIVE) 07/18/24 17:50 Ur Culture Indicated? No/not indicated 07/18/24 17:50 Stool Occult Blood Negative (NEGATIVE) 07/18/24 18:16 Urine Opiates Screen Negative (NEG=<300) 07/18/24 17:50 Urine Methadone Screen Negative (NEG=<300) 07/18/24 17:50 Ur Barbiturates Screen Negative (NEG=<200) 07/18/24 17:50 Ur Phencyclidine Scrn Negative (NEG=<25) 07/18/24 17:50 Ur Amphetamines Screen Negative (NEG=<1000) 07/18/24 17:50 U Benzodiazepines Scrn Negative (NEG=<200) 07/18/24 17:50 Urine Cocaine Screen Negative (NEG=<300) 07/18/24 17:50 U Marijuana (THC) Screen Negative (NEG=<50) 07/18/24 17:50 Blood Type O POSITIVE 07/18/24 18:38 Antibody Screen Negative 07/18/24 17:38 Crossmatch See Detail 07/18/24 17:38 Hospital Course: Patient admitted for severe, symptomatic anemia. She responded well to 4 units of PRBCs. Hemoglobin stable overnight. The patient denies any complaints today. Reports all symptoms are resolved. She is willing to follow-up with the gynecology as an outpatient. Also willing to take iron tablets. BP remained elevated during admission but patient declined medication at discharge. Patient sent home in improved, stable condition for outpatient follow-up with gynecology.
[2024-07-20 08:28] VITALS: BP 176/84; PULSE 74; RESP 18; TEMP 98.3; O2SAT 99
== END 2024-07-20 09:20 | disposition home or self-care (01) | DRG 812 ==
LOC: MED/SURG 15:48 → ER 15:48 → OBSVTOIN 19:25 → MED/SURG 20:19
PROVIDERS: ADMIT Family Medicine; ATTEND Family Medicine
DX: Z16.11 Resistance to penicillins; D50.0 Iron deficiency anemia secondary to blood loss (chronic); B95.7 Other staphylococcus as the cause of diseases classified elsewhere; N92.0 Excessive and frequent menstruation with regular cycle; Z16.29 Resistance to other single specified antibiotic; Z16.12 Extended spectrum beta lactamase (ESBL) resistance; R53.1 Weakness; Z16.19 Resistance to other specified beta lactam antibiotics